=== PATIENT | female | born 1990 | race African-American/Black ===

== ENCOUNTER 2017-10-26 22:19 | Emergency (ER) | payer SELFPAY ==
[~2017-10-26] VITALS: Ht 167.6 cm; Wt 73.0 kg
[2017-10-27] MEDS ORDERED: TETANUS, DIPHTHERIA, PERTUSSIS VAC/PF 0.5ML (>7YR OLD) IM ONE
[2017-10-27] MEDS ORDERED: ACETAMINOPHEN 325MG TABLET PO ONE
[2017-10-27] MEDS ORDERED: LIDOCAINE HCL/EPINEPHRINE 1%-EPI 1:100,000 20 ML VIAL INFIL ONE
[2017-10-27] MEDS ORDERED: BACITRACIN ZINC OINT UDPKT TOP ONE (01:00)
[2017-10-27 01:41] VITALS: BP 121/69
== END 2017-10-27 01:44 | disposition home or self-care (01) ==
LOC: ER 22:47
DX: S01.01XA Laceration without foreign body of scalp, initial encounter (principal); W18.30XA Fall on same level, unspecified, initial encounter; Y93.89 Activity, other specified; Y92.009 Unspecified place in unspecified non-institutional (private) residence as the place of occurrence of the external cause; Y99.8 Other external cause status
CPT/HCPCS: 12001; 90471; 90715; 99283; J3490; Z7610

== ENCOUNTER 2017-10-29 14:29 | Emergency (ER) | payer MEDICAID ==
[~2017-10-29] VITALS: Ht 170.2 cm; Wt 60.0 kg
[2017-10-29 18:30] VITALS: BP 139/89
== END 2017-10-29 18:30 | disposition home or self-care (01) ==
LOC: ER 16:48
DX: S09.90XA Unspecified injury of head, initial encounter (principal); W19.XXXA Unspecified fall, initial encounter; Y93.89 Activity, other specified; Y92.89 Other specified places as the place of occurrence of the external cause; Y99.8 Other external cause status
CPT/HCPCS: 70450; 99284; Z7610

== ENCOUNTER 2021-05-29 20:05 | Emergency (ER) | payer SELFPAY ==
[~2021-05-29] VITALS: Ht 170.2 cm; Wt 78.0 kg
[2021-05-29 20:50] VITALS: BP 144/82
[2021-05-29 22:47] LABS: HEMATOCRIT 37.7 % (36.0-48.0); HEMOGLOBIN 12.3 g/dL (12.0-16.0); MEAN CORPUSCULAR HEMOGLOBIN 27.8 pg (28.0-32.0); MEAN CORPUSCULAR VOLUME 84.8 fL (81.0-99.0); PLATELET 184 x1000/uL (130-400); RED BLOOD CELL COUNT 4.44 mill/uL (4.2-5.4); RED CELL DISTRIBUTION WIDTH 13.8 % (11.6-14.6)
[2021-05-29 22:52] LABS: CHLORIDE 110 mEq/L (98-107)
== END 2021-05-30 00:06 | disposition home or self-care (01) ==
LOC: ER 20:05
DX: R07.89 Other chest pain (principal); R42 Dizziness and giddiness; R55 Syncope and collapse; R51.9 Headache, unspecified; R06.02 Shortness of breath; R68.83 Chills (without fever)
CPT/HCPCS: 36415; 71045; 80048; 81025; 85027; 85379; 99285; 99291